=== PATIENT | female | born 1940 | race Caucasian/White ===

== ENCOUNTER 2021-08-30 12:40 | Observation (INO) | payer OTHER, MEDICAID ==
[~2021-08-30] VITALS: Ht 152.4 cm; Wt 74.8 kg
[2021-08-30 12:47] VITALS: BP_SYST 180
[2021-08-30] MEDS ORDERED: ASPIRIN 325 MG TABLET PO ONE (13:00)
[2021-08-30] MEDS ORDERED: ENOXAPARIN SODIUM 60 MG/0.6 ML SYRINGE SUBCUT ONE (13:00)
[2021-08-30] MEDS ORDERED: MORPHINE 4 MG INJ. 4 MG/ML VIAL IVP ONE (13:01)
[2021-08-30] MEDS ORDERED: NITROGLYCERIN 1 INCH (GM) OINT. TP ONE (13:01)
[2021-08-30 13:30] LABS: BASOPHILS # (AUTO) 0.1 K/uL (0.0-0.2); BASOPHILS % (AUTO) 0.9 % (0.0-2.0); EOSINOPHILS # (AUTO) 0.3 K/uL (0.0-0.4); EOSINOPHILS % (AUTO) 2.7 % (0.0-4.0); HEMATOCRIT 36.5 % (36-48); HEMOGLOBIN 12.4 g/dL (12.0-16.0); LYMPHOCYTES # (AUTO) 2.1 K/uL (1.0-5.5); LYMPHOCYTES % (AUTO) 19.6 % (20.5-51.5); MEAN CORPUSCULAR HEMOGLOBIN 31 pg (27-31); MEAN CORPUSCULAR HGB CONC 34 % (32-36); MEAN CORPUSCULAR VOLUME 91 fL (79.0-98.0); MONOCYTES # (AUTO) 0.7 K/uL (0.0-1.0); NEUTROPHILS # (AUTO) 7.3 K/uL (1.8-7.7); NEUTROPHILS % (AUTO) 69.8 % (40.0-70.0); PLATELET COUNT (AUTO) 193 K/uL (130-430); RED BLOOD CELL COUNT(AUTO) 4.03 MIL/uL (4.2-6.2); RED CELL DISTRIBUTION WIDTH 13.1 % (9.0-15.0); WHITE BLOOD COUNT (AUTO) 10.5 K/uL (4.8-10.8)
[2021-08-30 13:36] LABS: ANION GAP 5 (5-15); CALCIUM 8.4 mg/dL (8.4-11.0); CHLORIDE 105 mmol/L (98-107); CREATININE 0.92 mg/dL (0.55-1.30); GLUCOSE 97 mg/dL (70-99); POTASSIUM 4.2 mmol/L (3.5-5.1); SODIUM SERUM 141 mmol/L (136-145); UREA NITROGEN, BLOOD 18 mg/dL (8-21)
[2021-08-30 13:45] LABS: ALANINE AMINOTRANSFERASE 25 U/L (12-78); ALBUMIN 3.1 g/dL (3.4-4.8); ASPARTATE AMINOTRANSFERASE 24 U/L (10-37); TOTAL BILIRUBIN 0.2 mg/dL (0.0-1.0)
[2021-08-30] MEDS ORDERED: LISI10TA29 PO (16:02)
[2021-08-30] MEDS ORDERED: LEVO25TA76 PO (16:04)
[2021-08-30 16:52] VITALS: BP_SYST 146
[2021-08-30] MEDS ORDERED: APRE30TA2 PO (18:17)
[2021-08-30] MEDS ORDERED: LEVO50CA4 (18:17)
[2021-08-30] MEDS ORDERED: DICL75TA5 PO (18:17)
[2021-08-30] MEDS ORDERED: FAMO40TA7 PO (18:17)
[2021-08-30] MEDS ORDERED: LORA10TA7 PO (18:17)
[2021-08-30] MEDS ORDERED: ONDANSETRON HCL 4 MG/2 ML VIAL ONE (22:14)
[2021-08-30] MEDS ORDERED: ONDANSETRON HCL 4 MG/2 ML VIAL IVP ONE (22:15)
[2021-08-31 01:12] VITALS: BP_SYST 145
[2021-08-31] MEDS ORDERED: LEVOTHYROXINE SODIUM 0.05 MG TABLET PO SCH (07:00)
[2021-08-31 08:20] VITALS: BP_SYST 153
[2021-08-31 08:27] LABS: ANION GAP 8 (5-15); CALCIUM 8.3 mg/dL (8.4-11.0); CHLORIDE 105 mmol/L (98-107); CREATININE 1.02 mg/dL (0.55-1.30); GLUCOSE 103 mg/dL (70-99); POTASSIUM 4.1 mmol/L (3.5-5.1); SODIUM SERUM 142 mmol/L (136-145); UREA NITROGEN, BLOOD 14 mg/dL (8-21)
[2021-08-31 08:41] LABS: ALANINE AMINOTRANSFERASE 66 U/L (12-78); ASPARTATE AMINOTRANSFERASE 77 U/L (10-37); THYROID STIMULATING HORMONE 1.54 uIu/mL (0.36-3.74); TOTAL BILIRUBIN 0.6 mg/dL (0.0-1.0)
[2021-08-31] MEDS ORDERED: ASPIRIN 81 MG TAB.CHEW PO SCH (09:00)
[2021-08-31 09:58] LABS: CHOLESTEROL 170 mg/dL (<200); HDL CHOLESTEROL 48 mg/dL (>55); LDL CHOLESTEROL 97 mg/dL (<100); TRIGLYCERIDES 132 mg/dL (30-150)
[2021-08-31] MEDS ORDERED: FAMOTIDINE 20 MG TABLET PO ONE (10:30)
[2021-08-31] MEDS ORDERED: LISINOPRIL 10 MG TABLET (PRINIVIL) PO ONE (10:30)
[2021-08-31 11:52] VITALS: BP_SYST 135
[2021-08-31 12:49] VITALS: BP_SYST 133; BP_SYST 158
[2021-09-01] MEDS ORDERED: FAMOTIDINE 20 MG TABLET PO SCH (09:00)
[2021-09-01] MEDS ORDERED: LISINOPRIL 10 MG TABLET (PRINIVIL) PO SCH (09:00)
== END 2021-08-31 14:30 | disposition home or self-care (01) ==
LOC: SED 12:40 → STU 15:37
PROVIDERS: ADMIT Internal Medicine Hospice and Palliative Medicine; ATTEND Internal Medicine Hospice and Palliative Medicine
DX: R07.89 Other chest pain (principal); Z20.822 Contact with and (suspected) exposure to COVID-19; I20.9 Angina pectoris, unspecified; I10 Essential (primary) hypertension; L40.50 Arthropathic psoriasis, unspecified; M19.90 Unspecified osteoarthritis, unspecified site; E03.9 Hypothyroidism, unspecified; E78.00 Pure hypercholesterolemia, unspecified; E78.5 Hyperlipidemia, unspecified; Z79.899 Other long term (current) drug therapy
CPT/HCPCS: 36415 ×2; 71045; 80053 ×2; 80061; 83880 ×2; 84443; 84484 ×2; 85025; 85379; 87426; 93005; 93306; 96372; 96374; 96375; 99285; G0378 ×2; J1650; J2270; J2405